=== PATIENT | female | born 1950 | race Two or more races ===

== ENCOUNTER → 2017-08-12 | Outpatient (CLI) | payer OTHER ==
[~2017-08-12] MED LIST: INTEGRA F CAPS1 EACH PO; ULTRACET PO; XARELTO10 MG PO
== END | disposition home or self-care (01) ==
LOC: RAD 501 14:24
DX: Z96.641 Presence of right artificial hip joint (principal)

== ENCOUNTER 2017-10-21 10:52 | Outpatient (CLI) | payer OTHER | END 2017-10-21 11:00 | disposition home or self-care (01) | LOC: NUCLEAR 10:52 | DX: M81.0 Age-related osteoporosis without current pathological fracture (principal); I10 Essential (primary) hypertension; M54.5 Low back pain; E03.8 Other specified hypothyroidism; E05.90 Thyrotoxicosis, unspecified without thyrotoxic crisis or storm; Z01.01 Encounter for examination of eyes and vision with abnormal findings; Z01.810 Encounter for preprocedural cardiovascular examination ==

== ENCOUNTER 2017-12-30 10:25 | Emergency (ER) | payer OTHER ==
[~2017-12-30] VITALS: Ht 160 cm; Wt 61.7 kg
[2017-12-30] MEDS ORDERED: AMOX1TAB5 PO (12:11)
[2017-12-30] MEDS ORDERED: DICLOFENAC SODI50 MG PO (12:11)
== END 2017-12-30 13:27 | disposition home or self-care (01) ==
LOC: ER 10:25
DX: L03.032 Cellulitis of left toe (principal); L03.031 Cellulitis of right toe; T63.6 Toxic effect of contact with other venomous marine animals; L53.0 Toxic erythema

== ENCOUNTER 2018-10-25 00:42 | Emergency (ER) | payer OTHER ==
[~2018-10-25] VITALS: Ht 162.6 cm; Wt 62.1 kg
[~2018-10-25 00:42] MED LIST changes: +AMOX1TAB5 PO; +DICLOFENAC SODI50 MG PO
[2018-10-25] MEDS ORDERED: ATIVAN1 M1 (01:01)
== END 2018-10-25 12:04 | disposition home or self-care (01) ==
LOC: ER 00:42
DX: K64.4 Residual hemorrhoidal skin tags (principal); K64.8 Other hemorrhoids; K62.5 Hemorrhage of anus and rectum; F41.8 Other specified anxiety disorders

== ENCOUNTER 2018-10-27 08:59 | Inpatient (IN) | payer OTHER ==
[~2018-10-27] VITALS: Ht 162.6 cm; Wt 62.1 kg
[~2018-10-27 08:59] MED LIST changes: +ATIVAN1 M1
[2018-11-01] MEDS ORDERED: ATIVAN1 MG PO (10:44)
== END 2018-11-01 11:09 | disposition home or self-care (01) | DRG 348 ==
LOC: ER 08:59 → SEC-K 12:05 → MEDJ 12:05
PROVIDERS: Colon & Rectal Surgery; ADMIT Internal Medicine
PROC: 0DJD8ZZ Inspection of Lower Intestinal Tract, Via Natural or Artificial Opening Endoscopic (ICD-10-PCS; 2018-10-29)
PROC: 30233N1 Transfusion of Nonautologous Red Blood Cells into Peripheral Vein, Percutaneous Approach (ICD-10-PCS; 2018-10-30)
PROC: 3E0T3BZ Introduction of Anesthetic Agent into Peripheral Nerves and Plexi, Percutaneous Approach (ICD-10-PCS; 2018-10-31)
PROC: 0DBP7ZZ Excision of Rectum, Via Natural or Artificial Opening (ICD-10-PCS; principal; 2018-10-31 07:00)
DX: C21.8 Malignant neoplasm of overlapping sites of rectum, anus and anal canal (principal); K62.5 Hemorrhage of anus and rectum; K62.6 Ulcer of anus and rectum; D62 Acute posthemorrhagic anemia; A63.0 Anogenital (venereal) warts; K64.1 Second degree hemorrhoids; M85.88 Other specified disorders of bone density and structure, other site; Z96.642 Presence of left artificial hip joint

== ENCOUNTER 2018-11-21 08:44 | Outpatient (CLI) | payer OTHER ==
[~2018-11-21 08:44] MED LIST changes: +ATIVAN1 MG PO
== END 2018-11-21 09:01 | disposition home or self-care (01) ==
LOC: NUCLEAR 08:44
DX: C21.8 Malignant neoplasm of overlapping sites of rectum, anus and anal canal (principal)
CPT/HCPCS: 78815; A9552

== ENCOUNTER 2018-12-05 05:55 | Day surgery (SDC) | payer OTHER ==
[~2018-12-05 05:55] MED LIST changes: +ATIVAN0.5 MG PO; +MULTIVITAMINS1 EAC9 PO
== END 2018-12-05 12:00 | disposition home or self-care (01) ==
LOC: CIR.AMB 05:55
DX: C44.520 Squamous cell carcinoma of anal skin (principal)
CPT/HCPCS: 36561; C1751

== ENCOUNTER 2019-03-27 05:50 | Day surgery (SDC) | payer OTHER | END 2019-03-27 11:00 | disposition home or self-care (01) | LOC: AMB-ENDOS 05:50 | DX: K57.30 Diverticulosis of large intestine without perforation or abscess without bleeding (principal); K64.1 Second degree hemorrhoids ==

== ENCOUNTER 2019-06-04 09:23 | Emergency (ER) | payer OTHER ==
[~2019-06-04] VITALS: Ht 162.6 cm; Wt 58.5 kg
== END 2019-06-04 10:40 | disposition home or self-care (01) ==
LOC: ER 09:23
DX: E53.8 Deficiency of other specified B group vitamins (principal); J06.9 Acute upper respiratory infection, unspecified

== ENCOUNTER 2020-02-04 07:44 | Outpatient (CLI) | payer OTHER | END 2020-02-04 07:49 | disposition home or self-care (01) | LOC: RAD 07:44 | DX: R61 Generalized hyperhidrosis (principal) ==

== ENCOUNTER 2020-02-09 08:49 | Outpatient (CLI) | payer OTHER | END 2020-02-09 09:01 | disposition home or self-care (01) | LOC: TOM 08:49 | PROVIDERS: ATTEND Internal Medicine Hematology & Oncology | DX: C21.8 Malignant neoplasm of overlapping sites of rectum, anus and anal canal (principal) | CPT/HCPCS: 71260; 74177; Q9965 ==

== ENCOUNTER → 2020-04-22 | Day surgery (SDC) | payer OTHER | END | disposition home or self-care (01) | LOC: ADM 04-13 14:15 → AMB-ENDOS 08:12 | PROVIDERS: ATTEND Colon & Rectal Surgery | DX: K62.89 Other specified diseases of anus and rectum (principal); K64.0 First degree hemorrhoids; Z20.828 Contact with and (suspected) exposure to other viral communicable diseases ==

== ENCOUNTER 2020-06-13 14:58 | Outpatient (CLI) | payer OTHER | END 2020-06-13 15:04 | disposition home or self-care (01) | LOC: RAD 14:58 | PROVIDERS: ATTEND Orthopaedic Surgery | DX: Z96.643 Presence of artificial hip joint, bilateral (principal) ==

== ENCOUNTER 2020-06-23 14:31 | Outpatient (CLI) | payer OTHER | END 2020-06-23 14:52 | disposition home or self-care (01) | LOC: NUCLEAR 14:31 | PROVIDERS: ATTEND Orthopaedic Surgery | DX: M85.9 Disorder of bone density and structure, unspecified (principal); M81.0 Age-related osteoporosis without current pathological fracture ==

== ENCOUNTER 2020-07-07 09:52 | Outpatient (CLI) | payer OTHER | END 2020-07-07 10:07 | disposition home or self-care (01) | LOC: MAMO-SONO 09:52 | PROVIDERS: ATTEND Specialist | DX: N83.292 Other ovarian cyst, left side (principal); N83.291 Other ovarian cyst, right side; R92.2 Inconclusive mammogram; N64.59 Other signs and symptoms in breast ==

== ENCOUNTER 2020-07-18 08:22 | Outpatient (CLI) | payer OTHER | END 2020-07-18 08:23 | disposition home or self-care (01) | LOC: LAB 08:22 | PROVIDERS: ATTEND Orthopaedic Surgery | DX: I10 Essential (primary) hypertension (principal); E21.2 Other hyperparathyroidism; E55.9 Vitamin D deficiency, unspecified; M85.88 Other specified disorders of bone density and structure, other site; E88.89 Other specified metabolic disorders; E56.1 Deficiency of vitamin K; M81.8 Other osteoporosis without current pathological fracture; Z86.010 Personal history of colon polyps; C44.520 Squamous cell carcinoma of anal skin ==

== ENCOUNTER 2020-08-03 06:02 | Day surgery (SDC) | payer OTHER | END 2020-08-03 10:45 | disposition home or self-care (01) | LOC: CIR.AMB 06:02 | PROVIDERS: ATTEND Colon & Rectal Surgery | DX: C44.520 Squamous cell carcinoma of anal skin (principal); Z20.822 Contact with and (suspected) exposure to COVID-19 ==

== ENCOUNTER 2021-03-23 07:50 | Outpatient (CLI) | payer OTHER | END 2021-03-23 08:15 | disposition home or self-care (01) | LOC: PPH VACUNA 07:50 | PROVIDERS: ATTEND Emergency Medicine Pediatric Emergency Medicine | DX: Z23 Encounter for immunization (principal) ==

== ENCOUNTER → 2021-04-17 | Outpatient (CLI) | payer OTHER | END | disposition home or self-care (01) | LOC: SONOGRAMA 13:17 | PROVIDERS: ATTEND Internal Medicine | DX: E07.89 Other specified disorders of thyroid (principal); F41.8 Other specified anxiety disorders; F32.0 Major depressive disorder, single episode, mild; E78.89 Other lipoprotein metabolism disorders; T82.11 Breakdown (mechanical) of cardiac electronic device; M54.59 Other low back pain ==

== ENCOUNTER 2021-08-14 10:48 | Outpatient (CLI) | payer OTHER | END 2021-08-14 11:02 | disposition home or self-care (01) | LOC: MAMO-SONO 10:48 | DX: N63.11 Unspecified lump in the right breast, upper outer quadrant (principal); N83.209 Unspecified ovarian cyst, unspecified side ==

== ENCOUNTER 2021-08-29 10:40 | Outpatient (CLI) | payer OTHER | END 2021-08-29 10:42 | disposition home or self-care (01) | LOC: PPH VACUNA 10:40 | PROVIDERS: ATTEND Emergency Medicine Pediatric Emergency Medicine | DX: Z23 Encounter for immunization (principal) ==

== ENCOUNTER 2021-11-29 11:29 | Outpatient (CLI) | payer OTHER | END 2021-11-29 11:30 | disposition home or self-care (01) | LOC: RAD 11:29 | PROVIDERS: ATTEND Chiropractor | DX: M54.6 Pain in thoracic spine (principal); M54.50 Low back pain, unspecified; M46.1 Sacroiliitis, not elsewhere classified ==

== ENCOUNTER 2022-02-02 08:47 | Outpatient (CLI) | payer OTHER | END 2022-02-02 08:52 | disposition home or self-care (01) | LOC: PPH VACUNA 08:47 | PROVIDERS: ATTEND Emergency Medicine Pediatric Emergency Medicine | DX: Z23 Encounter for immunization (principal) ==

== ENCOUNTER 2022-02-14 07:43 | Outpatient (CLI) | payer OTHER | END 2022-02-14 07:51 | disposition home or self-care (01) | LOC: SONOGRAMA 07:43 | PROVIDERS: ATTEND Specialist | DX: N20.0 Calculus of kidney (principal) ==

== ENCOUNTER → 2022-02-15 07:20 | Outpatient (CLI) | payer OTHER | END | disposition home or self-care (01) | LOC: LAB 07:20 | PROVIDERS: ATTEND Specialist | DX: R31.1 Benign essential microscopic hematuria (principal); N93.8 Other specified abnormal uterine and vaginal bleeding ==

== ENCOUNTER 2022-06-29 13:50 | Outpatient (CLI) | payer OTHER | END 2022-06-29 13:51 | disposition home or self-care (01) | LOC: NUCLEAR 13:50 | PROVIDERS: ATTEND Orthopaedic Surgery | DX: M81.0 Age-related osteoporosis without current pathological fracture (principal) ==

== ENCOUNTER 2022-07-31 15:24 | Outpatient (CLI) | payer OTHER | END 2022-07-31 15:30 | disposition home or self-care (01) | LOC: LAB 15:24 | PROVIDERS: ATTEND Specialist | DX: N39.8 Other specified disorders of urinary system (principal) ==

== ENCOUNTER 2022-10-12 11:35 | Outpatient (CLI) | payer OTHER | END 2022-10-12 11:45 | disposition home or self-care (01) | LOC: PPH VACUNA 11:35 | PROVIDERS: ATTEND Emergency Medicine Pediatric Emergency Medicine | DX: Z23 Encounter for immunization (principal) ==

== ENCOUNTER 2022-11-02 11:46 | Outpatient (CLI) | payer OTHER | END 2022-11-02 11:55 | disposition home or self-care (01) | LOC: MRI 11:46 | PROVIDERS: ATTEND Chiropractor | DX: M48.061 Spinal stenosis, lumbar region without neurogenic claudication (principal) | CPT/HCPCS: 72148 ==

== ENCOUNTER 2022-11-05 11:38 | Outpatient (CLI) | payer OTHER | END 2022-11-05 11:46 | disposition home or self-care (01) | LOC: SONOGRAMA 11:38 | DX: N83.201 Unspecified ovarian cyst, right side (principal) ==

== ENCOUNTER 2022-12-03 07:27 | Outpatient (CLI) | payer OTHER | END 2022-12-03 07:30 | disposition home or self-care (01) | LOC: LAB 07:27 | PROVIDERS: ATTEND Orthopaedic Surgery | DX: M85.9 Disorder of bone density and structure, unspecified (principal); E83.42 Hypomagnesemia; E56.1 Deficiency of vitamin K; E88.89 Other specified metabolic disorders; M81.8 Other osteoporosis without current pathological fracture ==

== ENCOUNTER 2022-12-03 07:47 | Outpatient (CLI) | payer OTHER | END 2022-12-03 07:56 | disposition home or self-care (01) | LOC: RAD 07:47 | PROVIDERS: ATTEND Orthopaedic Surgery | DX: Z96.643 Presence of artificial hip joint, bilateral (principal) ==

== ENCOUNTER → 2024-05-01 | Outpatient (CLI) | payer OTHER | END | disposition home or self-care (01) | LOC: SONOGRAMA 09:01 | DX: E04.8 Other specified nontoxic goiter (principal) ==

== ENCOUNTER 2024-05-05 13:41 | Outpatient (CLI) | payer OTHER | END 2024-05-05 13:43 | disposition home or self-care (01) | LOC: SONOGRAMA 13:41 | PROVIDERS: ATTEND Specialist | DX: N83.10 Corpus luteum cyst of ovary, unspecified side (principal) ==

== ENCOUNTER 2024-07-01 10:17 | Outpatient (CLI) | payer OTHER | END 2024-07-01 10:20 | disposition home or self-care (01) | LOC: NUCLEAR 10:17 | PROVIDERS: ATTEND Specialist | DX: M81.0 Age-related osteoporosis without current pathological fracture (principal) ==

== ENCOUNTER 2024-10-08 08:12 | Outpatient (CLI) | payer OTHER | END 2024-10-08 08:19 | disposition home or self-care (01) | LOC: RAD 08:12 | PROVIDERS: ATTEND Internal Medicine | DX: J01.90 Acute sinusitis, unspecified (principal); E05.00 Thyrotoxicosis with diffuse goiter without thyrotoxic crisis or storm; F41.9 Anxiety disorder, unspecified; F32.0 Major depressive disorder, single episode, mild; F39 Unspecified mood [affective] disorder; I10 Essential (primary) hypertension; E55.9 Vitamin D deficiency, unspecified; N39.0 Urinary tract infection, site not specified ==

== ENCOUNTER 2025-03-24 10:17 | Outpatient (CLI) | payer OTHER | END 2025-03-24 10:22 | disposition home or self-care (01) | LOC: MRI 10:17 | DX: S83.207A Unspecified tear of unspecified meniscus, current injury, left knee, initial encounter (principal); M25.571 Pain in right ankle and joints of right foot | CPT/HCPCS: 73721 ==

== ENCOUNTER 2025-05-03 09:00 | Outpatient (CLI) | payer OTHER | END 2025-05-03 09:05 | disposition home or self-care (01) | LOC: SONOGRAMA 09:00 | PROVIDERS: ATTEND Internal Medicine Endocrinology, Diabetes & Metabolism | DX: N83.209 Unspecified ovarian cyst, unspecified side (principal); E04.9 Nontoxic goiter, unspecified ==